=== PATIENT | male | born 1935 | race Caucasian/White ===

== ENCOUNTER 2019-04-25 05:46 | Inpatient (IN) ==
[2019-04-12 14:30] LABS: Basophils % 0.4 % (0.0-0.8); Eosinophils # 0.1 10*3/uL (0.0-0.87); Eosinophils % 1.2 % (0.00-10.9); Hematocrit 33.4 VOL% (42.0-52.0); Immature Granulocytes % 0.5 %; Immature Granulocytes Absolute 0.04 #; Lymphocytes # 1.5 10*3/uL (1.4-4.0); Lymphocytes % 19.5 % (21.2-54.2); Mean Corpuscular HGB Conc 32.9 GM/DL (32-36); Mean Corpuscular Volume 95.4 FL (87-102); Mean Platelet Volume 9.6 FL (9.6-12.0); Monocytes % 8.5 % (1.7-12.7); Neutrophils % 69.9 % (38.7-73.9); Platelet Count 135 T/CUMM (130-400); Red Cell Distribution Width 14.1 % (9.3-17.3); White Blood Count 7.7 T/CUMM (4-12)
[2019-04-12 14:43] LABS: Apearance,Urine CLEAR (Clear); Bilirubin,Urine Negative (Negative); Blood, Urine Small mg/dL (Negative); Glucose,Urine (UA) Negative (Negative); Hyaline Casts,Urine 3 /LPF (0-3); Ketones,Urine Negative (Negative); Mucus,Urine Occasional /LPF (Occasional); Nitrite,Urine Negative (Negative); Protein,Urine Negative; RBC,Urine 5 /HPF (0-4); Squamous Epithelial Cell,Urine Occasional /HPF (0-10); Urine Color Yellow (Yellow); Urine Specific Gravity 1.013 (1.001-1.035); Urine Urobilinogen < 2.0 EU/DL (0.2-1.0); WBC,Urine <1 /HPF (0-6)
[2019-04-12 14:49] LABS: Osmolality,Calculated 270.4 MOS/KG (273-304)
[2019-04-25] MEDS ORDERED: cefTRIAXone 1,000 MG in SYRINGE 1 EACH IV ONE (06:00)
[2019-04-25] MEDS ORDERED: ALVIMOPAN 12 MG CAPSULE PO ONE (06:00)
[2019-04-25] MEDS ORDERED: SODIUM PHOSPHATE ENEMA 133 ML BOTTLE RECTAL ONE ×2 (06:00→06:02)
[2019-04-25] MEDS ORDERED: ALVIMOPAN 12 MG CAPSULE ONE (06:01)
[2019-04-25] MEDS ORDERED: cefTRIAXone 1,000 MG VIAL ONE (06:02)
[2019-04-25] MEDS ORDERED: FAMOTIDINE 20 MG TABLET ONE (06:46)
[2019-04-25] MEDS ORDERED: FAMOTIDINE 20 MG TABLET PO ONE (06:47)
[2019-04-25] MEDS: LACTATED RINGERS 1,000 ML IV SCH ×2 (06:55→11:58)
[2019-04-25] MEDS ORDERED: ONDANSETRON 4 MG/2 ML VIAL IV PRN ×2 (10:21→11:42)
[2019-04-25] MEDS ORDERED: NALOXONE 0.4 MG/ML VIAL IV PRN (10:21)
[2019-04-25] MEDS ORDERED: diphenhydrAMINE 50 MG/1 ML VIAL IV PRN (10:21)
[2019-04-25] MEDS ORDERED: propofoL 200 MG/20 ML VIAL IV ONE (10:49)
[2019-04-25] MEDS ORDERED: LIDOCAINE 2% 5 ML VIAL ONE (10:49)
[2019-04-25] MEDS ORDERED: PHENYLEPHRINE DRIP 20 MG/250 ML PREMIX IV ONE (10:49)
[2019-04-25] MEDS ORDERED: SEVOFLURANE 1 UNIT/15 MINUTE INH ONE (10:49)
[2019-04-25] MEDS ORDERED: ETOMIDATE 40 MG/20 ML VIAL IV ONE (10:50)
[2019-04-25] MEDS ORDERED: GLYCOPYRROLATE 0.4 MG/2 ML VIAL ONE (10:50)
[2019-04-25] MEDS ORDERED: ACETAMINOPHEN 1,000 MG/100 ML VIAL IV ONE (10:50)
[2019-04-25] MEDS ORDERED: fentaNYL 250 MCG/5 ML VIAL ONE (10:50)
[2019-04-25] MEDS ORDERED: DESFLURANE 1 UNIT/15 MINUTE INH ONE (10:50)
[2019-04-25] MEDS ORDERED: DEXAMETHASONE 4 MG/1 ML VIAL ONE (10:50)
[2019-04-25] MEDS ORDERED: NEOSTIGMINE 10 MG/10 ML VIAL ONE (10:51)
[2019-04-25] MEDS ORDERED: ROCURONIUM 100 MG/10 ML VIAL IV ONE (10:51)
[2019-04-25] MEDS: HYDROmorphone 2 MG/1 ML VIAL IV PRN ×3 (11:45→12:10)
[2019-04-25] MEDS ORDERED: HYDROmorphone PCA 30 MG/30 ML SYRINGE IV SCH (12:00)
[2019-04-25] MEDS ORDERED: HYDROmorphone PCA 30 MG/30 ML SYRINGE IV ONE (14:32)
[2019-04-25] MEDS: SODIUM CHLORIDE 0.9% 1,000 ML IV SCH (15:16)
[2019-04-25] MEDS: VERAPAMIL SR 240 MG TABLET PO SCH (20:19)
[2019-04-25] MEDS: MONTELUKAST 10 MG TABLET PO SCH (20:19)
[2019-04-26] MEDS: SODIUM CHLORIDE 0.9% 1,000 ML IV SCH ×2 (03:58)
[2019-04-26 05:49] LABS: Basophils % 0.2 % (0.0-0.8); Hematocrit 29.8 VOL% (42.0-52.0); Hemoglobin 9.6 GM/DL (14.0-18.0); Immature Granulocytes % 0.6 %; Immature Granulocytes Absolute 0.07 #; Lymphocytes % 8.1 % (21.2-54.2); Mean Corpuscular HGB Conc 32.2 GM/DL (32-36); Mean Corpuscular Volume 97.4 FL (87-102); Mean Platelet Volume 9.8 FL (9.6-12.0); Monocytes % 11.7 % (1.7-12.7); Neutrophils % 79.4 % (38.7-73.9); Platelet Count 152 T/CUMM (130-400); Red Blood Count 3.06 MC/CUMM (3.8-5.5); Red Cell Distribution Width 14.5 % (9.3-17.3); White Blood Count 11.8 T/CUMM (4-12)
[2019-04-26 06:05] LABS: Calcium 8.4 MG/DL (8.5-10.1)
[2019-04-26] MEDS: ASPIRIN EC 81 MG TABLET PO SCH (08:35)
[2019-04-26] MEDS ORDERED: CHLORTHALIDONE 25 MG TABLET PO SCH (09:00)
[2019-04-26] MEDS ORDERED: TERAZOSIN 5 MG CAPSULE PO SCH (09:00)
[2019-04-26] MEDS ORDERED: TELMISARTAN 40 MG TABLET PO SCH (09:00)
[2019-04-26] MEDS ORDERED: LOSARTAN 50 MG TABLET PO SCH (09:00)
[2019-04-26] MEDS ORDERED: PANTOPRAZOLE 40 MG TABLET PO SCH (09:00)
[2019-04-26] MEDS: TELMISARTAN 80MG PO SCH (09:20)
[2019-04-26] MEDS: LACTATED RINGERS 1,000 ML IV SCH (12:52)
[2019-04-26] MEDS: oxyCODONE/ACETAMINOPHEN 5-325 MG TABLET PO PRN ×2 (12:55→18:26)
[2019-04-26] MEDS ORDERED: BISACODYL 10 MG SUPP RECTAL ONE (13:41)
[2019-04-26] MEDS ORDERED: POLYETHYLENE GLYCOL POWDER 17 GM PACK PO PRN (16:23)
[2019-04-26] MEDS: SIMETHICONE CHEW 80 MG TABLET PO PRN (16:35)
[2019-04-26] MEDS: VERAPAMIL SR 240 MG TABLET PO SCH (21:06)
[2019-04-26] MEDS: MONTELUKAST 10 MG TABLET PO SCH (21:06)
[2019-04-27] MEDS: oxyCODONE/ACETAMINOPHEN 5-325 MG TABLET PO PRN ×4 (01:35→18:05)
[2019-04-27] MEDS: SIMETHICONE CHEW 80 MG TABLET PO PRN (04:59)
[2019-04-27] MEDS: PANTOPRAZOLE 40 MG TABLET PO SCH (06:00)
[2019-04-27] MEDS ORDERED: BISACODYL 5 MG TABLET PO ONE (08:51)
[2019-04-27] MEDS: CHLORTHALIDONE 25 MG TABLET PO SCH (09:16)
[2019-04-27] MEDS: ASPIRIN EC 81 MG TABLET PO SCH (09:16)
[2019-04-27] MEDS: TELMISARTAN 80MG PO SCH (09:17)
[2019-04-27] MEDS ORDERED: DILTIAZEM CD 240 MG CAPSULE PO SCH (21:00)
[2019-04-27] MEDS ORDERED: TERAZOSIN 5 MG CAPSULE PO SCH (21:00)
[2019-04-27] MEDS: MONTELUKAST 10 MG TABLET PO SCH (21:08)
[2019-04-28] MEDS: oxyCODONE/ACETAMINOPHEN 5-325 MG TABLET PO PRN (02:47)
[2019-04-28] MEDS: PANTOPRAZOLE 40 MG TABLET PO SCH (06:07)
[2019-04-28 08:12] VITALS: BP 129/52
[2019-04-28] MEDS: CHLORTHALIDONE 25 MG TABLET PO SCH (08:17)
[2019-04-28] MEDS: ASPIRIN EC 81 MG TABLET PO SCH (08:17)
[2019-04-28] MEDS ORDERED: TELMISARTAN 80MG PO SCH (09:00)
== END 2019-04-28 10:32 | disposition home health service (06) | DRG 657 ==
LOC: N.OR 05:46 → N.SDSINP 05:46 → N.5E 15:02
PROVIDERS: ADMIT Urology; ATTEND Urology

== ENCOUNTER 2019-05-15 14:46 | Inpatient (IN) ==
[2019-05-15] MEDS ORDERED: cefTRIAXone 1,000 MG in SODIUM CHLORIDE 0.9% 100 ML IV STA (15:18)
[2019-05-15 15:22] LABS: Basophils # 0.1 10*3/uL (0.0-0.2); Basophils % 0.7 % (0.0-0.8); Eosinophils # 0.3 10*3/uL (0.0-0.87); Eosinophils % 3.6 % (0.00-10.9); Hematocrit 29.4 VOL% (42.0-52.0); Hemoglobin 9.6 GM/DL (14.0-18.0); Immature Granulocytes % 0.4 %; Immature Granulocytes Absolute 0.03 #; Lymphocytes # 1.1 10*3/uL (1.4-4.0); Lymphocytes % 14.7 % (21.2-54.2); Mean Corpuscular HGB Conc 32.7 GM/DL (32-36); Mean Corpuscular Volume 96.7 FL (87-102); Mean Platelet Volume 9.6 FL (9.6-12.0); Monocytes % 10.1 % (1.7-12.7); Neutrophils % 70.5 % (38.7-73.9); Platelet Count 219 T/CUMM (130-400); Red Blood Count 3.04 MC/CUMM (3.8-5.5); Red Cell Distribution Width 14.6 % (9.3-17.3); White Blood Count 7.2 T/CUMM (4-12)
[2019-05-15 15:31] LABS: PT Patient Result 11.1 SECS (9.6-12.2); Partial Thromboplastin Time 28.5 SECS (20.8-36.0)
[2019-05-15 15:57] LABS: Albumin 3.2 G/DL (3.4-5.0); Bilirubin,Total 0.5 MG/DL (0.2-1.0); Calcium 8.4 MG/DL (8.5-10.1); Osmolality,Calculated 279.2 MOS/KG (273-304); Total Protein 6.5 G/DL (6.4-8.3)
[2019-05-15] MEDS ORDERED: ONDANSETRON 4 MG/2 ML VIAL IV PRN ×2 (16:58→17:15)
[2019-05-15] MEDS ORDERED: MEPERIDINE 50 MG/1 ML VIAL IM PRN (17:01)
[2019-05-15] MEDS ORDERED: SILDENAFIL 100 MG PO PRN (17:03)
[2019-05-15] MEDS ORDERED: MEPERIDINE 25 MG/1 ML VIAL ONE ×2 (17:14→17:35)
[2019-05-15] MEDS ORDERED: ONDANSETRON 4 MG/2 ML VIAL ONE ×2 (17:14→17:17)
[2019-05-15] MEDS ORDERED: LIDOCAINE 2% 5 ML VIAL ONE (17:15)
[2019-05-15] MEDS ORDERED: propofoL 200 MG/20 ML VIAL IV ONE (17:15)
[2019-05-15] MEDS ORDERED: SEVOFLURANE 1 UNIT/15 MINUTE INH ONE (17:15)
[2019-05-15] MEDS ORDERED: ePHEDrine 50 MG/ML AMP ONE ×2 (17:16)
[2019-05-15] MEDS ORDERED: fentaNYL 100 MCG/2 ML VIAL ONE (17:16)
[2019-05-15] MEDS ORDERED: PHENYLEPHRINE 1 MG/10 ML SYRINGE IV ONE (17:17)
[2019-05-15] MEDS ORDERED: GLYCOPYRROLATE 0.4 MG/2 ML VIAL ONE (17:17)
[2019-05-15] MEDS ORDERED: SUCCINYLCHOLINE 200 MG/10 ML VIAL ONE (17:17)
[2019-05-15] MEDS ORDERED: DEXAMETHASONE 4 MG/1 ML VIAL ONE (17:17)
[2019-05-15] MEDS: MEPERIDINE 25 MG/1 ML VIAL IV PRN ×2 (17:18→17:36)
[2019-05-15] MEDS ORDERED: NEOSTIGMINE 10 MG/10 ML VIAL ONE (17:18)
[2019-05-15] MEDS ORDERED: ROCURONIUM 100 MG/10 ML VIAL IV ONE (17:18)
[2019-05-15] MEDS ORDERED: LACTATED RINGERS 1,000 ML IV ONE (17:18)
[2019-05-15] MEDS: DEXTROSE 5% NACL 0.45% 1,000 ML IV SCH (18:13)
[2019-05-15] MEDS: traMADol 50 MG TABLET PO PRN (19:40)
[2019-05-15] MEDS ORDERED: VERAPAMIL SR 240 MG TABLET PO SCH (21:00)
[2019-05-15] MEDS ORDERED: MONTELUKAST 10 MG TABLET PO SCH (21:00)
[2019-05-16] MEDS: traMADol 50 MG TABLET PO PRN ×2 (02:31→08:32)
[2019-05-16 05:40] LABS: Basophils % 0.1 % (0.0-0.8); Hematocrit 27.7 VOL% (42.0-52.0); Hemoglobin 9.1 GM/DL (14.0-18.0); Immature Granulocytes % 0.5 %; Immature Granulocytes Absolute 0.04 #; Lymphocytes # 0.4 10*3/uL (1.4-4.0); Lymphocytes % 4.6 % (21.2-54.2); Mean Corpuscular HGB Conc 32.9 GM/DL (32-36); Mean Corpuscular Volume 96.2 FL (87-102); Mean Platelet Volume 9.3 FL (9.6-12.0); Neutrophils % 90.8 % (38.7-73.9); Platelet Count 200 T/CUMM (130-400); Red Blood Count 2.88 MC/CUMM (3.8-5.5); Red Cell Distribution Width 14.5 % (9.3-17.3); White Blood Count 7.6 T/CUMM (4-12)
[2019-05-16 06:02] LABS: Band Neutrophils 1 % (0-10); Hypochromasia 1+; Lymphocytes 2 % (20-55); Ovalocytes Slight; Platelet Estimate Adequate; Segmented Neutrophils 93 % (50-85); Total Cells Counted 100
[2019-05-16 06:12] LABS: Calcium 8.6 MG/DL (8.5-10.1); Osmolality,Calculated 272.7 MOS/KG (273-304)
[2019-05-16] MEDS: DEXTROSE 5% NACL 0.45% 1,000 ML IV SCH (06:47)
[2019-05-16] MEDS ORDERED: TERAZOSIN 5 MG CAPSULE PO SCH (09:00)
[2019-05-16] MEDS ORDERED: CHLORTHALIDONE 25 MG TABLET PO SCH (09:00)
[2019-05-16] MEDS ORDERED: MELOXICAM 7.5 MG TABLET PO SCH (09:00)
[2019-05-16] MEDS ORDERED: PANTOPRAZOLE 40 MG TABLET PO SCH (09:00)
[2019-05-16 09:09] VITALS: BP 129/51
== END 2019-05-16 09:59 | disposition home or self-care (01) | DRG 909 ==
LOC: N.ED 14:46 → N.EDINP 14:46 → INTOOBSV 15:27 → OBSVTOIN 15:27 → N.EDINP 15:27 → N.5E 15:46 → UNDODISOB 05-16 09:59
PROVIDERS: ADMIT Urology; ATTEND Urology

== ENCOUNTER 2019-06-12 13:08 | Inpatient (IN) ==
[2019-06-12 13:39] LABS: Basophils % 0.3 % (0.0-0.8); Eosinophils # 0.1 10*3/uL (0.0-0.87); Eosinophils % 0.7 % (0.00-10.9); Hematocrit 29.4 VOL% (42.0-52.0); Hemoglobin 9.2 GM/DL (14.0-18.0); Immature Granulocytes % 0.5 %; Immature Granulocytes Absolute 0.04 #; Lymphocytes # 0.8 10*3/uL (1.4-4.0); Mean Corpuscular HGB Conc 31.3 GM/DL (32-36); Mean Platelet Volume 9.4 FL (9.6-12.0); Monocytes % 10.2 % (1.7-12.7); Neutrophils % 79.3 % (38.7-73.9); Platelet Count 200 T/CUMM (130-400); Red Blood Count 2.94 MC/CUMM (3.8-5.5); Red Cell Distribution Width 14.1 % (9.3-17.3); White Blood Count 8.8 T/CUMM (4-12)
[2019-06-12 14:00] LABS: Albumin 3.6 G/DL (3.4-5.0); Bilirubin,Total 0.5 MG/DL (0.2-1.0); Calcium 9.1 MG/DL (8.5-10.1); Osmolality,Calculated 270.5 MOS/KG (273-304); Total Protein 6.4 G/DL (6.4-8.3)
[2019-06-12] MEDS ORDERED: FUROSEMIDE 100 MG/10 ML VIAL IV STA (14:41)
[2019-06-12] MEDS ORDERED: ONDANSETRON 4 MG/2 ML VIAL IV STA (14:41)
[2019-06-12] MEDS ORDERED: ALBUTEROL/IPRATROPIUM 3 ML NEB RESP TX STA (14:41)
[2019-06-12] MEDS ORDERED: ONDANSETRON 4 MG/2 ML VIAL IV PRN (16:09)
[2019-06-12] MEDS ORDERED: ACETAMINOPHEN 325 MG TABLET PO PRN (16:09)
[2019-06-12] MEDS: ALBUTEROL/IPRATROPIUM 3 ML NEB RESP TX SCH (18:40)
[2019-06-12] MEDS: MONTELUKAST 10 MG TABLET PO SCH (21:12)
[2019-06-12] MEDS: APIXABAN 2.5 MG TABLET PO SCH (21:12)
[2019-06-12] MEDS: TERAZOSIN 10 MG CAPSULE PO SCH (21:12)
[2019-06-12] MEDS: VERAPAMIL SR 240 MG TABLET PO SCH (21:12)
[2019-06-12 22:03] LABS: Apearance,Urine CLEAR (Clear); Bilirubin,Urine Negative (Negative); Blood, Urine Negative (Negative); Glucose,Urine (UA) Negative (Negative); Ketones,Urine Negative (Negative); Nitrite,Urine Negative (Negative); Protein,Urine Negative; RBC,Urine 1 /HPF (0-4); Urine Color Colorless (Yellow); Urine Specific Gravity 1.005 (1.001-1.035); Urine Urobilinogen < 2.0 EU/DL (0.2-1.0); WBC,Urine <1 /HPF (0-6)
[2019-06-13] MEDS: ALBUTEROL/IPRATROPIUM 3 ML NEB RESP TX SCH ×4 (01:12→19:10)
[2019-06-13 04:29] LABS: Basophils % 0.4 % (0.0-0.8); Eosinophils # 0.2 10*3/uL (0.0-0.87); Eosinophils % 3.1 % (0.00-10.9); Hematocrit 27.2 VOL% (42.0-52.0); Hemoglobin 8.7 GM/DL (14.0-18.0); Immature Granulocytes % 0.3 %; Immature Granulocytes Absolute 0.02 #; Lymphocytes # 1.7 10*3/uL (1.4-4.0); Lymphocytes % 23.6 % (21.2-54.2); Mean Corpuscular Volume 98.6 FL (87-102); Mean Platelet Volume 9.6 FL (9.6-12.0); Neutrophils % 61.6 % (38.7-73.9); Platelet Count 213 T/CUMM (130-400); Red Blood Count 2.76 MC/CUMM (3.8-5.5); Red Cell Distribution Width 14.3 % (9.3-17.3); White Blood Count 7.1 T/CUMM (4-12)
[2019-06-13 04:59] LABS: Calcium 9.2 MG/DL (8.5-10.1); Osmolality,Calculated 273.4 MOS/KG (273-304)
[2019-06-13 05:00] LABS: Risk Ratio 1.61; VLDL CHOLESTEROL 11.2 MG/DL
[2019-06-13] MEDS: PANTOPRAZOLE 40 MG TABLET PO SCH (10:35)
[2019-06-13] MEDS: LINACLOTIDE 145 MCG CAPSULE PO SCH (10:35)
[2019-06-13] MEDS: ASPIRIN EC 81 MG TABLET PO SCH (10:35)
[2019-06-13] MEDS: APIXABAN 2.5 MG TABLET PO SCH ×2 (10:36→21:09)
[2019-06-13] MEDS: DOCUSATE SODIUM 100 MG CAPSULE PO PRN (10:36)
[2019-06-13] MEDS: FUROSEMIDE 40 MG/4 ML VIAL IV SCH ×2 (10:36→18:02)
[2019-06-13] MEDS ORDERED: PRAMIPEXOLE 0.25 MG TABLET PO SCH (21:00)
[2019-06-13] MEDS: VERAPAMIL SR 240 MG TABLET PO SCH (21:09)
[2019-06-13] MEDS: TERAZOSIN 10 MG CAPSULE PO SCH (21:09)
[2019-06-13] MEDS: VITAMIN E 400 UNIT CAPSULE PO SCH (21:09)
[2019-06-13] MEDS: MONTELUKAST 10 MG TABLET PO SCH (21:09)
[2019-06-14] MEDS: ALBUTEROL/IPRATROPIUM 3 ML NEB RESP TX SCH ×3 (01:42→13:27)
[2019-06-14 04:40] LABS: Basophils % 0.5 % (0.0-0.8); Eosinophils # 0.3 10*3/uL (0.0-0.87); Eosinophils % 4.4 % (0.00-10.9); Hemoglobin 8.3 GM/DL (14.0-18.0); Immature Granulocytes % 0.5 %; Immature Granulocytes Absolute 0.03 #; Lymphocytes # 1.3 10*3/uL (1.4-4.0); Lymphocytes % 21.7 % (21.2-54.2); Mean Corpuscular HGB Conc 30.7 GM/DL (32-36); Mean Corpuscular Volume 101.1 FL (87-102); Mean Platelet Volume 9.9 FL (9.6-12.0); Monocytes % 13.1 % (1.7-12.7); Neutrophils % 59.8 % (38.7-73.9); Platelet Count 186 T/CUMM (130-400); Red Blood Count 2.67 MC/CUMM (3.8-5.5); Red Cell Distribution Width 14.2 % (9.3-17.3); White Blood Count 6.1 T/CUMM (4-12)
[2019-06-14] MEDS ORDERED: FUROSEMIDE 20 MG/2 ML VIAL IV SCH (07:36)
[2019-06-14] MEDS: LINACLOTIDE 145 MCG CAPSULE PO SCH (08:10)
[2019-06-14] MEDS: VITAMIN E 400 UNIT CAPSULE PO SCH (08:43)
[2019-06-14] MEDS: PANTOPRAZOLE 40 MG TABLET PO SCH (08:43)
[2019-06-14] MEDS: DOCUSATE SODIUM 100 MG CAPSULE PO PRN (08:43)
[2019-06-14] MEDS: APIXABAN 2.5 MG TABLET PO SCH (08:43)
[2019-06-14] MEDS: ASPIRIN EC 81 MG TABLET PO SCH (08:43)
[2019-06-14] MEDS ORDERED: BISACODYL 5 MG TABLET PO ONE (09:30)
[2019-06-14 12:20] VITALS: BP 114/41
[2019-06-14] MEDS ORDERED: FUROSEMIDE 40 MG TABLET PO SCH (16:00)
[2019-06-14] MEDS ORDERED: hydrALAZINE 25 MG TABLET PO SCH (21:00)
== END 2019-06-14 15:35 | disposition home or self-care (01) | DRG 291 ==
LOC: N.ED 13:08 → N.EDINP 15:24 → N.TELES 15:39
PROVIDERS: ADMIT Internal Medicine; ATTEND Internal Medicine

== ENCOUNTER 2019-07-19 15:58 | Inpatient (IN) ==
[2019-07-19] MEDS ORDERED: DOPamine 800 MG/250 ML PREMIX IV ONE (22:41)
[2019-07-19] MEDS ORDERED: SODIUM CHLORIDE 0.9% 500 ML IV ONE (22:43)
[2019-07-19 22:50] LABS: Hematocrit 28.5 VOL% (42.0-52.0); Hemoglobin 8.4 GM/DL (14.0-18.0); Immature Granulocytes % 1.1 %; Immature Granulocytes Absolute 0.22 #; Lymphocytes # 0.8 10*3/uL (1.4-4.0); Lymphocytes % 3.8 % (21.2-54.2); Mean Corpuscular HGB Conc 29.5 GM/DL (32-36); Mean Platelet Volume 11.5 FL (9.6-12.0); Monocytes % 10.8 % (1.7-12.7); NRBC # 0.02 10*3/uL; Neutrophils % 84.3 % (38.7-73.9); Platelet Count 139 T/CUMM (130-400); Red Blood Count 2.88 MC/CUMM (3.8-5.5); Red Cell Distribution Width 14.1 % (9.3-17.3); White Blood Count 20.6 T/CUMM (4-12)
[2019-07-19] MEDS ORDERED: DEXTROSE 10% 250 ML IV ONE (22:51)
[2019-07-19] MEDS ORDERED: SODIUM BICARBONATE 50 MEQ/50 ML VIAL IV ONE (22:51)
[2019-07-19] MEDS ORDERED: INSULIN REGULAR 100 UNIT/ML ONE (22:53)
[2019-07-19] MEDS ORDERED: CALCIUM GLUCONATE 1,000 MG/10 ML VIAL IV ONE (22:54)
[2019-07-19] MEDS ORDERED: SODIUM CHLORIDE 0.9% 100 ML IV ONE (22:54)
[2019-07-19] MEDS ORDERED: MORPHINE 4 MG/1 ML VIAL ONE (23:04)
[2019-07-19] MEDS ORDERED: ONDANSETRON 4 MG/2 ML VIAL ONE (23:05)
[2019-07-19] MEDS: ONDANSETRON 4 MG/2 ML VIAL IV PRN (23:08)
[2019-07-19 23:11] LABS: CKMB % 2.7 %; Troponin I 0.389 NG/ML (0.00-0.045)
[2019-07-19 23:21] LABS: Albumin 3.4 G/DL (3.4-5.0); Bilirubin,Total 2.1 MG/DL (0.2-1.0); Calcium 9.1 MG/DL (8.5-10.1); Osmolality,Calculated 285.2 MOS/KG (273-304); Total Protein 5.8 G/DL (6.4-8.3)
[2019-07-19 23:36] LABS: INR 4.5
[2019-07-19] MEDS ORDERED: DOCUSATE SODIUM 100 MG CAPSULE PO PRN (23:47)
[2019-07-19] MEDS ORDERED: ALBUTEROL 2.5 MG/3 ML NEB RESP TX PRN (23:47)
[2019-07-19 23:48] LABS: PT Patient Result 44.8 SECS (9.8-11.9)
[2019-07-20] MEDS ORDERED: VANCOMYCIN INJ 2,250 MG in SODIUM CHLORIDE 0.9% 500 ML IV ONE
[2019-07-20] MEDS ORDERED: DOPamine 800 MG/250 ML PREMIX IV PRN (00:17)
[2019-07-20] MEDS ORDERED: SODIUM BICARBONATE 50 MEQ/50 ML VIAL IV ONE (00:20)
[2019-07-20] MEDS ORDERED: CALCIUM GLUCONATE 1,000 MG in SODIUM CHLORIDE 0.9% 100 ML IV ONE (00:21)
[2019-07-20] MEDS ORDERED: DEXTROSE 50% 25 GM/50 ML SYRINGE IV ONE (00:22)
[2019-07-20] MEDS ORDERED: INSULIN REGULAR 100 UNIT/ML IV ONE (00:22)
[2019-07-20 00:23] LABS: Lymphocytes 4 % (20-55); Platelet Estimate Decreased; Segmented Neutrophils 86 % (50-85); Total Cells Counted 100
[2019-07-20 00:24] LABS: Acanthocytes 2+; Anisocytosis 2+; Hypochromasia 1+; Macrocytosis 1+; Microcytosis 1+; Ovalocytes 2+; Target Cells Few
[2019-07-20] MEDS: MORPHINE 4 MG/1 ML VIAL IV PRN (00:25)
[2019-07-20 00:30] LABS: Allen Test Positive
[2019-07-20 00:33] LABS: ABG Base Excess -8.5 MMOL/L (-2.5-2.5); ABG HCO3 17.5 MMOL/L (20-26); ABG Oxygen Saturation 98.8 % (95-100); ABG PCO2 34.1 MM HG (35-48); ABG PH 7.307 (7.35-7.45)
[2019-07-20] MEDS ORDERED: LIDOCAINE 2% TOP JELLY 20 ML VIAL INTRAURETH ONE (00:50)
[2019-07-20] MEDS ORDERED: LIDOCAINE 2% 20 ML VIAL ONE (00:50)
[2019-07-20] MEDS: PIPERACILLIN/TAZOBACTAM 3,375 MG in SODIUM CHLORIDE 0.9% 100 ML IV SCH ×3 (02:03→23:49)
[2019-07-20 02:56] LABS: Ferritin 71.3 ng/ml (26-388)
[2019-07-20 03:13] LABS: Apearance,Urine Slightly Hazy (Clear); Bacteria,Urine Occasional /HPF (Few); Bilirubin,Urine Negative (Negative); Blood, Urine Negative (Negative); Glucose,Urine (UA) Negative (Negative); Ketones,Urine Negative (Negative); Mucus,Urine Occasional /LPF (Occasional); Nitrite,Urine Negative (Negative); Protein,Urine 30 MG/DL; Squamous Epithelial Cell,Urine Occasional /HPF (0-10); Urine Color Amber (Yellow); Urine Specific Gravity 1.015 (1.001-1.035)
[2019-07-20] MEDS: SODIUM BICARB INJ 50 MEQ in SODIUM CHLORIDE 0.45% 1,000 ML IV SCH ×2 (03:50→17:12)
[2019-07-20] MEDS ORDERED: VANCOMYCIN INJ 1,500 MG in SODIUM CHLORIDE 0.9% 500 ML IV PRN (04:07)
[2019-07-20 05:04] LABS: Basophils % 0.1 % (0.0-0.8); Hematocrit 23.8 VOL% (42.0-52.0); Immature Granulocytes Absolute 0.16 #; Lymphocytes # 0.5 10*3/uL (1.4-4.0); Lymphocytes % 2.9 % (21.2-54.2); Mean Corpuscular HGB Conc 31.5 GM/DL (32-36); Mean Corpuscular Volume 91.9 FL (87-102); Mean Platelet Volume 11.4 FL (9.6-12.0); Monocytes % 10.5 % (1.7-12.7); NRBC # 0.02 10*3/uL; Neutrophils % 85.5 % (38.7-73.9); Red Blood Count 2.59 MC/CUMM (3.8-5.5); White Blood Count 15.4 T/CUMM (4-12)
[2019-07-20 05:06] LABS: Hemoglobin 7.5 GM/DL (14.0-18.0); Platelet Count 83 T/CUMM (130-400)
[2019-07-20 05:44] LABS: Band Neutrophils 4 % (0-10); Lymphocytes 2 % (20-55); Platelet Estimate Decreased; Segmented Neutrophils 84 % (50-85); Total Cells Counted 100
[2019-07-20 05:45] LABS: Anisocytosis 1+; Hypochromasia 2+; Macrocytosis 1+; Target Cells 2+
[2019-07-20 08:05] LABS: Bilirubin,Total 2.2 MG/DL (0.2-1.0); Calcium 9.2 MG/DL (8.5-10.1); Osmolality,Calculated 284.4 MOS/KG (273-304); Total Protein 5.6 G/DL (6.4-8.3)
[2019-07-20] MEDS ORDERED: BENZOCAINE/MENTHOL LOZENGE 18/BOX PO PRN (08:12)
[2019-07-20] MEDS: DOBUTamine 500 MG/250 ML PREMIX IV SCH (08:24)
[2019-07-20] MEDS: FUROSEMIDE 40 MG TABLET PO SCH ×2 (08:27→15:33)
[2019-07-20] MEDS: ASPIRIN EC 81 MG TABLET PO SCH (08:27)
[2019-07-20] MEDS: POTASSIUM CHLORIDE 10 MEQ TABLET PO SCH (08:27)
[2019-07-20] MEDS: VITAMIN E 1000 UNIT CAPSULE PO SCH ×2 (08:28→20:32)
[2019-07-20] MEDS ORDERED: BISACODYL 5 MG TABLET PO SCH (09:00)
[2019-07-20] MEDS ORDERED: LINACLOTIDE 145 MCG CAPSULE PO SCH (09:00)
[2019-07-20] MEDS ORDERED: PANTOPRAZOLE 40 MG TABLET PO SCH (09:00)
[2019-07-20] MEDS ORDERED: APIXABAN 2.5 MG TABLET PO SCH (09:00)
[2019-07-20] MEDS: POLYETHYLENE GLYCOL POWDER 17 GM PACK PO SCH ×2 (15:33→20:40)
[2019-07-20] MEDS: MONTELUKAST 10 MG TABLET PO SCH (20:32)
[2019-07-20] MEDS: PANTOPRAZOLE 40 MG VIAL IV SCH (20:34)
[2019-07-20] MEDS: TERAZOSIN 10 MG CAPSULE PO SCH (20:40)
[2019-07-21] MEDS: MORPHINE 4 MG/1 ML VIAL IV PRN ×2 (01:12→20:19)
[2019-07-21] MEDS: DOBUTamine 500 MG/250 ML PREMIX IV SCH ×2 (03:13→19:15)
[2019-07-21 04:01] LABS: Basophils % 0.1 % (0.0-0.8); Eosinophils # 0.1 10*3/uL (0.0-0.87); Eosinophils % 0.4 % (0.00-10.9); Hemoglobin 7.7 GM/DL (14.0-18.0); Immature Granulocytes % 0.5 %; Immature Granulocytes Absolute 0.06 #; Lymphocytes # 0.8 10*3/uL (1.4-4.0); Lymphocytes % 6.4 % (21.2-54.2); Mean Corpuscular HGB Conc 30.8 GM/DL (32-36); Mean Platelet Volume 11.2 FL (9.6-12.0); Monocytes % 8.7 % (1.7-12.7); NRBC # 0.05 10*3/uL; Neutrophils % 83.9 % (38.7-73.9); Platelet Count 57 T/CUMM (130-400); Red Blood Count 2.66 MC/CUMM (3.8-5.5); Red Cell Distribution Width 14.5 % (9.3-17.3); White Blood Count 12.6 T/CUMM (4-12)
[2019-07-21 04:40] LABS: Albumin 2.9 G/DL (3.4-5.0); Bilirubin,Total 1.8 MG/DL (0.2-1.0); Calcium 8.4 MG/DL (8.5-10.1); Osmolality,Calculated 282.6 MOS/KG (273-304); Total Protein 5.2 G/DL (6.4-8.3)
[2019-07-21 04:51] LABS: Anisocytosis 1+; Ovalocytes 1+; Platelet Estimate Decreased
[2019-07-21] MEDS: SODIUM BICARB INJ 50 MEQ in SODIUM CHLORIDE 0.45% 1,000 ML IV SCH (06:41)
[2019-07-21] MEDS: FUROSEMIDE 40 MG TABLET PO SCH ×2 (08:00→16:00)
[2019-07-21] MEDS: LINACLOTIDE 145 MCG CAPSULE PO SCH (08:00)
[2019-07-21] MEDS: ASPIRIN EC 81 MG TABLET PO SCH (08:01)
[2019-07-21] MEDS: POTASSIUM CHLORIDE 10 MEQ TABLET PO SCH (08:15)
[2019-07-21] MEDS: POLYETHYLENE GLYCOL POWDER 17 GM PACK PO SCH ×3 (08:17→20:08)
[2019-07-21] MEDS: VITAMIN E 1000 UNIT CAPSULE PO SCH ×2 (08:20→20:08)
[2019-07-21] MEDS: PANTOPRAZOLE 40 MG VIAL IV SCH ×2 (11:07→20:08)
[2019-07-21] MEDS: PIPERACILLIN/TAZOBACTAM 3,375 MG in SODIUM CHLORIDE 0.9% 100 ML IV SCH ×2 (12:43→22:53)
[2019-07-21] MEDS ORDERED: VANCOMYCIN INJ 1,500 MG in SODIUM CHLORIDE 0.9% 500 ML IV ONE (16:00)
[2019-07-21] MEDS: TERAZOSIN 10 MG CAPSULE PO SCH (20:08)
[2019-07-21] MEDS: MONTELUKAST 10 MG TABLET PO SCH (20:08)
[2019-07-22] MEDS: MORPHINE 4 MG/1 ML VIAL IV PRN (00:33)
[2019-07-22] MEDS: SODIUM BICARB INJ 50 MEQ in SODIUM CHLORIDE 0.45% 1,000 ML IV SCH ×2 (01:58→12:15)
[2019-07-22 04:41] LABS: Basophils % 0.2 % (0.0-0.8); Eosinophils # 0.2 10*3/uL (0.0-0.87); Eosinophils % 2.1 % (0.00-10.9); Hematocrit 26.1 VOL% (42.0-52.0); Hemoglobin 8.4 GM/DL (14.0-18.0); Immature Granulocytes % 0.6 %; Immature Granulocytes Absolute 0.05 #; Lymphocytes # 0.9 10*3/uL (1.4-4.0); Lymphocytes % 9.7 % (21.2-54.2); Mean Corpuscular HGB Conc 32.2 GM/DL (32-36); Mean Corpuscular Volume 91.3 FL (87-102); Mean Platelet Volume 11.8 FL (9.6-12.0); Monocytes % 11.4 % (1.7-12.7); NRBC # 0.03 10*3/uL; Platelet Count 58 T/CUMM (130-400); Red Blood Count 2.86 MC/CUMM (3.8-5.5); Red Cell Distribution Width 14.1 % (9.3-17.3); White Blood Count 8.9 T/CUMM (4-12)
[2019-07-22 05:06] LABS: Bilirubin,Total 2.1 MG/DL (0.2-1.0); Calcium 8.3 MG/DL (8.5-10.1); Osmolality,Calculated 288.2 MOS/KG (273-304); Total Protein 5.3 G/DL (6.4-8.3)
[2019-07-22 06:44] LABS: Lymphocytes 13 % (20-55); Segmented Neutrophils 76 % (50-85); Total Cells Counted 100
[2019-07-22 06:45] LABS: Anisocytosis 1+; Platelet Estimate Decreased
[2019-07-22] MEDS: FUROSEMIDE 40 MG TABLET PO SCH ×2 (08:00→16:12)
[2019-07-22] MEDS: LINACLOTIDE 145 MCG CAPSULE PO SCH (08:00)
[2019-07-22] MEDS: POLYETHYLENE GLYCOL POWDER 17 GM PACK PO SCH ×3 (08:00→21:00)
[2019-07-22] MEDS: VITAMIN E 1000 UNIT CAPSULE PO SCH ×2 (08:00→21:00)
[2019-07-22] MEDS: POTASSIUM CHLORIDE 10 MEQ TABLET PO SCH (08:00)
[2019-07-22] MEDS: ASPIRIN EC 81 MG TABLET PO SCH (08:00)
[2019-07-22] MEDS: PANTOPRAZOLE 40 MG VIAL IV SCH ×2 (10:21→21:00)
[2019-07-22] MEDS: ISOSORBIDE MONONITRATE 30 MG TABLET PO SCH (11:00)
[2019-07-22] MEDS: PIPERACILLIN/TAZOBACTAM 3,375 MG in SODIUM CHLORIDE 0.9% 100 ML IV SCH (14:36)
[2019-07-22] MEDS: MONTELUKAST 10 MG TABLET PO SCH (21:00)
[2019-07-22] MEDS: hydrALAZINE 25 MG TABLET PO SCH (21:00)
[2019-07-23] MEDS: PIPERACILLIN/TAZOBACTAM 3,375 MG in SODIUM CHLORIDE 0.9% 100 ML IV SCH ×3 (00:15→23:53)
[2019-07-23] MEDS: SODIUM BICARB INJ 50 MEQ in SODIUM CHLORIDE 0.45% 1,000 ML IV SCH ×2 (05:12→12:45)
[2019-07-23 05:33] LABS: Basophils % 0.2 % (0.0-0.8); Eosinophils # 0.2 10*3/uL (0.0-0.87); Eosinophils % 2.4 % (0.00-10.9); Hematocrit 27.2 VOL% (42.0-52.0); Hemoglobin 8.6 GM/DL (14.0-18.0); Immature Granulocytes % 0.9 %; Immature Granulocytes Absolute 0.08 #; Mean Corpuscular HGB Conc 31.6 GM/DL (32-36); Mean Corpuscular Volume 91.9 FL (87-102); Mean Platelet Volume 10.8 FL (9.6-12.0); Monocytes % 12.2 % (1.7-12.7); NRBC # 0.02 10*3/uL; Neutrophils % 72.3 % (38.7-73.9); Platelet Count 65 T/CUMM (130-400); Red Blood Count 2.96 MC/CUMM (3.8-5.5); Red Cell Distribution Width 14.1 % (9.3-17.3); White Blood Count 8.6 T/CUMM (4-12)
[2019-07-23 05:37] LABS: PT Patient Result 20.9 SECS (9.8-11.9)
[2019-07-23 06:07] LABS: Calcium 8.3 MG/DL (8.5-10.1); Osmolality,Calculated 289.2 MOS/KG (273-304)
[2019-07-23 06:37] LABS: Albumin 2.8 G/DL (3.4-5.0); Bilirubin,Total 2.7 MG/DL (0.2-1.0); Calcium 8.4 MG/DL (8.5-10.1); Osmolality,Calculated 289.1 MOS/KG (273-304); Total Protein 5.3 G/DL (6.4-8.3)
[2019-07-23] MEDS: PANTOPRAZOLE 40 MG VIAL IV SCH ×2 (08:50→21:47)
[2019-07-23] MEDS: POLYETHYLENE GLYCOL POWDER 17 GM PACK PO SCH ×3 (08:50→21:47)
[2019-07-23] MEDS: ASPIRIN EC 81 MG TABLET PO SCH (08:51)
[2019-07-23] MEDS: POTASSIUM CHLORIDE 10 MEQ TABLET PO SCH (08:51)
[2019-07-23] MEDS: FUROSEMIDE 40 MG TABLET PO SCH ×2 (08:51→15:31)
[2019-07-23] MEDS: hydrALAZINE 25 MG TABLET PO SCH ×2 (08:51→21:47)
[2019-07-23] MEDS: VITAMIN E 1000 UNIT CAPSULE PO SCH ×2 (08:52→21:47)
[2019-07-23] MEDS: LINACLOTIDE 145 MCG CAPSULE PO SCH (08:52)
[2019-07-23] MEDS: ISOSORBIDE MONONITRATE 30 MG TABLET PO SCH (08:52)
[2019-07-23 11:18] LABS: Acanthocytes Few; Burr Cells Few; Hypochromasia 3+; Ovalocytes Few; Poikilocytosis 2+; Polychromasia Slight
[2019-07-23 11:19] LABS: Platelet Estimate Decreased
[2019-07-23] MEDS: MORPHINE 4 MG/1 ML VIAL IV PRN ×2 (17:59→23:53)
[2019-07-23] MEDS: MONTELUKAST 10 MG TABLET PO SCH (21:47)
[2019-07-24 06:30] LABS: Basophils % 0.2 % (0.0-0.8); Eosinophils # 0.2 10*3/uL (0.0-0.87); Eosinophils % 2.5 % (0.00-10.9); Hematocrit 28.4 VOL% (42.0-52.0); Hemoglobin 8.8 GM/DL (14.0-18.0); Immature Granulocytes % 0.6 %; Immature Granulocytes Absolute 0.05 #; Lymphocytes # 1.1 10*3/uL (1.4-4.0); Lymphocytes % 12.7 % (21.2-54.2); Mean Corpuscular Volume 92.2 FL (87-102); Mean Platelet Volume 10.8 FL (9.6-12.0); Monocytes % 14.2 % (1.7-12.7); Neutrophils % 69.8 % (38.7-73.9); Platelet Count 72 T/CUMM (130-400); Red Blood Count 3.08 MC/CUMM (3.8-5.5); Red Cell Distribution Width 14.3 % (9.3-17.3); White Blood Count 8.8 T/CUMM (4-12)
[2019-07-24] MEDS ORDERED: BISACODYL 5 MG TABLET PO ONE (06:52)
[2019-07-24 06:58] LABS: Hypochromasia 1+; Ovalocytes Slight; Platelet Estimate Decreased
[2019-07-24 07:09] LABS: Calcium 8.3 MG/DL (8.5-10.1); Osmolality,Calculated 289.9 MOS/KG (273-304)
[2019-07-24 07:13] LABS: Albumin 2.8 G/DL (3.4-5.0); Bilirubin,Direct 1.4 MG/DL (0.0-0.20); Bilirubin,Total 2.4 MG/DL (0.2-1.0); Total Protein 5.5 G/DL (6.4-8.3)
[2019-07-24] MEDS: ISOSORBIDE MONONITRATE 30 MG TABLET PO SCH (09:01)
[2019-07-24] MEDS: POTASSIUM CHLORIDE 10 MEQ TABLET PO SCH (09:02)
[2019-07-24] MEDS: hydrALAZINE 25 MG TABLET PO SCH ×2 (09:03→21:42)
[2019-07-24] MEDS: ASPIRIN EC 81 MG TABLET PO SCH (09:03)
[2019-07-24] MEDS: PANTOPRAZOLE 40 MG VIAL IV SCH ×2 (09:04→21:43)
[2019-07-24] MEDS: VITAMIN E 1000 UNIT CAPSULE PO SCH ×2 (09:04→21:30)
[2019-07-24] MEDS: POLYETHYLENE GLYCOL POWDER 17 GM PACK PO SCH ×3 (09:04→21:43)
[2019-07-24] MEDS: SENNA 8.6 MG TABLET PO SCH ×2 (09:31→21:30)
[2019-07-24] MEDS: LINACLOTIDE 145 MCG CAPSULE PO SCH (09:31)
[2019-07-24] MEDS: FUROSEMIDE 40 MG TABLET PO SCH ×2 (09:59→15:32)
[2019-07-24 10:19] LABS: Hepatitis B Core IgM Quant 0.06 Index; Hepatitis B Surface Ag Quant 0.21 Index; Hepatitis B Surface Ag Result Negative (Negative); Hepatitis C Virus Ab Quant < 0.02 Index; Hepatitis C Virus Ab Result Negative (Negative)
[2019-07-24] MEDS: SODIUM BICARB INJ 50 MEQ in SODIUM CHLORIDE 0.45% 1,000 ML IV SCH (12:22)
[2019-07-24] MEDS: PIPERACILLIN/TAZOBACTAM 3,375 MG in SODIUM CHLORIDE 0.9% 100 ML IV SCH (12:33)
[2019-07-24] MEDS: ONDANSETRON 4 MG/2 ML VIAL IV PRN (17:26)
[2019-07-24] MEDS: MONTELUKAST 10 MG TABLET PO SCH (21:30)
[2019-07-25] MEDS: PIPERACILLIN/TAZOBACTAM 3,375 MG in SODIUM CHLORIDE 0.9% 100 ML IV SCH ×3 (00:37→23:47)
[2019-07-25] MEDS: LINACLOTIDE 145 MCG CAPSULE PO SCH (08:09)
[2019-07-25] MEDS: FUROSEMIDE 40 MG TABLET PO SCH ×2 (08:10→16:53)
[2019-07-25] MEDS: carvediloL 3.125 MG TABLET PO SCH ×2 (08:10→21:16)
[2019-07-25] MEDS: hydrALAZINE 25 MG TABLET PO SCH ×2 (08:11→21:16)
[2019-07-25] MEDS: POTASSIUM CHLORIDE 10 MEQ TABLET PO SCH (08:12)
[2019-07-25] MEDS: POLYETHYLENE GLYCOL POWDER 17 GM PACK PO SCH ×2 (08:12→23:53)
[2019-07-25] MEDS: SENNA 8.6 MG TABLET PO SCH ×2 (08:12→21:19)
[2019-07-25] MEDS: ISOSORBIDE MONONITRATE 30 MG TABLET PO SCH (08:12)
[2019-07-25] MEDS: ASPIRIN EC 81 MG TABLET PO SCH (08:12)
[2019-07-25] MEDS: PANTOPRAZOLE 40 MG VIAL IV SCH ×2 (08:12→21:16)
[2019-07-25] MEDS: VITAMIN E 1000 UNIT CAPSULE PO SCH ×2 (08:12→21:18)
[2019-07-25] MEDS: MONTELUKAST 10 MG TABLET PO SCH (21:16)
[2019-07-26] MEDS ORDERED: ACETAMINOPHEN 500 MG TABLET PO PRN (00:25)
[2019-07-26 08:56] VITALS: BP 122/64
[2019-07-26 09:23] LABS: Basophils % 0.3 % (0.0-0.8); Eosinophils # 0.3 10*3/uL (0.0-0.87); Eosinophils % 3.3 % (0.00-10.9); Hematocrit 28.3 VOL% (42.0-52.0); Hemoglobin 8.7 GM/DL (14.0-18.0); Immature Granulocytes % 0.5 %; Immature Granulocytes Absolute 0.05 #; Lymphocytes # 1.3 10*3/uL (1.4-4.0); Lymphocytes % 14.6 % (21.2-54.2); Mean Corpuscular HGB Conc 30.7 GM/DL (32-36); Mean Corpuscular Volume 93.1 FL (87-102); Mean Platelet Volume 10.3 FL (9.6-12.0); Monocytes % 10.5 % (1.7-12.7); Neutrophils % 70.8 % (38.7-73.9); Red Blood Count 3.04 MC/CUMM (3.8-5.5); Red Cell Distribution Width 14.5 % (9.3-17.3); White Blood Count 9.1 T/CUMM (4-12)
[2019-07-26 09:25] LABS: Platelet Count 87 T/CUMM (130-400)
[2019-07-26] MEDS: hydrALAZINE 25 MG TABLET PO SCH (09:34)
[2019-07-26] MEDS: FUROSEMIDE 40 MG TABLET PO SCH (09:34)
[2019-07-26] MEDS: carvediloL 3.125 MG TABLET PO SCH (09:34)
[2019-07-26] MEDS: ISOSORBIDE MONONITRATE 30 MG TABLET PO SCH (09:34)
[2019-07-26] MEDS: POLYETHYLENE GLYCOL POWDER 17 GM PACK PO SCH (09:35)
[2019-07-26] MEDS: ASPIRIN EC 81 MG TABLET PO SCH (09:35)
[2019-07-26] MEDS: POTASSIUM CHLORIDE 10 MEQ TABLET PO SCH (09:35)
[2019-07-26] MEDS: SENNA 8.6 MG TABLET PO SCH (09:35)
[2019-07-26] MEDS: PANTOPRAZOLE 40 MG VIAL IV SCH (09:35)
[2019-07-26] MEDS: VITAMIN E 1000 UNIT CAPSULE PO SCH (09:36)
[2019-07-26 09:43] LABS: Calcium 8.7 MG/DL (8.5-10.1); Osmolality,Calculated 288.9 MOS/KG (273-304)
[2019-07-26 09:49] LABS: Hypochromasia 1+; Platelet Estimate Decreased
== END 2019-07-26 12:21 | DRG 260 ==
LOC: SUATTDRO 21:19 → N.3E 21:19 → N.ICU 22:25 → N.2E 07-22 14:07 → N.TELEN 07-25 17:33
PROVIDERS: ADMIT Internal Medicine; ATTEND Internal Medicine

== ENCOUNTER 2019-07-30 22:28 | Inpatient (IN) ==
[2019-07-30] MEDS ORDERED: ONDANSETRON 4 MG/2 ML VIAL IV STA (22:44)
[2019-07-30 23:14] LABS: Basophils % 0.2 % (0.0-0.8); Eosinophils # 0.1 10*3/uL (0.0-0.87); Eosinophils % 0.4 % (0.00-10.9); Hematocrit 30.1 VOL% (42.0-52.0); Hemoglobin 9.4 GM/DL (14.0-18.0); Immature Granulocytes % 0.8 %; Lymphocytes # 1.5 10*3/uL (1.4-4.0); Lymphocytes % 12.2 % (21.2-54.2); Mean Corpuscular HGB Conc 31.2 GM/DL (32-36); Mean Corpuscular Volume 91.2 FL (87-102); Monocytes % 9.2 % (1.7-12.7); Neutrophils % 77.2 % (38.7-73.9); Platelet Count 168 T/CUMM (130-400); Red Cell Distribution Width 15.9 % (9.3-17.3); White Blood Count 12.4 T/CUMM (4-12)
[2019-07-30 23:34] LABS: Albumin 3.2 G/DL (3.4-5.0); Bilirubin,Total 2.8 MG/DL (0.2-1.0); Osmolality,Calculated 289.9 MOS/KG (273-304); Total Protein 6.3 G/DL (6.4-8.3)
[2019-07-31] MEDS ORDERED: FUROSEMIDE 40 MG/4 ML VIAL IV STA (00:23)
[2019-07-31] MEDS ORDERED: AZITHROMYCIN INJ 500 MG in SODIUM CHLORIDE 0.9% 250 ML IV STA (00:24)
[2019-07-31] MEDS ORDERED: MAGNESIUM SULF RIDER 4 GM in PREMIX 1 EACH IV PRN (02:58)
[2019-07-31] MEDS ORDERED: MAGNESIUM SULF RIDER 2 GM in PREMIX 1 EACH IV PRN (02:58)
[2019-07-31] MEDS ORDERED: GLUCAGON 1 MG VIAL IM PRN (02:58)
[2019-07-31] MEDS ORDERED: FLUTICASONE 50 MCG NASAL SPRAY 16 GM BOTTLE BOTH NARES PRN (03:07)
[2019-07-31] MEDS ORDERED: DEXTROSE 10% 250 ML BAG IV PRN (03:40)
[2019-07-31] MEDS ORDERED: FUROSEMIDE 40 MG/4 ML VIAL IV SCH (08:00)
[2019-07-31] MEDS ORDERED: PANTOPRAZOLE 40 MG TABLET PO SCH (09:00)
[2019-07-31] MEDS: hydrALAZINE 25 MG TABLET PO SCH ×2 (09:20→20:44)
[2019-07-31] MEDS: PANTOPRAZOLE 40 MG TABLET PO SCH ×2 (09:20→20:44)
[2019-07-31] MEDS: ISOSORBIDE MONONITRATE 30 MG TABLET PO SCH (09:25)
[2019-07-31] MEDS: ASPIRIN EC 81 MG TABLET PO SCH (09:56)
[2019-07-31] MEDS: APIXABAN 2.5 MG TABLET PO SCH ×2 (09:56→20:44)
[2019-07-31] MEDS: BISACODYL 5 MG TABLET PO SCH (09:56)
[2019-07-31] MEDS: POLYETHYLENE GLYCOL POWDER 17 GM PACK PO SCH ×2 (09:57→20:44)
[2019-07-31] MEDS: CETIRIZINE 10 MG TABLET PO SCH (09:57)
[2019-07-31] MEDS: LINACLOTIDE 145 MCG CAPSULE PO SCH (09:57)
[2019-07-31] MEDS: POTASSIUM CHLORIDE 10 MEQ TABLET PO SCH (09:57)
[2019-07-31 11:00] LABS: Basophils % 0.2 % (0.0-0.8); Eosinophils # 0.1 10*3/uL (0.0-0.87); Hematocrit 30.1 VOL% (42.0-52.0); Hemoglobin 9.3 GM/DL (14.0-18.0); Immature Granulocytes % 0.7 %; Lymphocytes # 1.4 10*3/uL (1.4-4.0); Lymphocytes % 9.5 % (21.2-54.2); Mean Corpuscular HGB Conc 30.9 GM/DL (32-36); Mean Corpuscular Volume 92.3 FL (87-102); Mean Platelet Volume 10.5 FL (9.6-12.0); Monocytes % 12.4 % (1.7-12.7); Neutrophils % 76.2 % (38.7-73.9); Platelet Count 154 T/CUMM (130-400); Red Blood Count 3.26 MC/CUMM (3.8-5.5); Red Cell Distribution Width 15.9 % (9.3-17.3); White Blood Count 14.7 T/CUMM (4-12)
[2019-07-31 11:36] LABS: Bilirubin,Total 2.8 MG/DL (0.2-1.0); Osmolality,Calculated 285.1 MOS/KG (273-304)
[2019-07-31] MEDS: NYSTATIN 500,000 UNIT/5 ML UDCUP SWISH/SWAL SCH ×3 (13:06→20:44)
[2019-07-31] MEDS: FUROSEMIDE 100 MG/10 ML VIAL IV SCH (15:48)
[2019-07-31] MEDS: MONTELUKAST 10 MG TABLET PO SCH (20:44)
[2019-08-01] MEDS: ACETAMINOPHEN 325 MG TABLET PO PRN ×2 (01:00→22:50)
[2019-08-01] MEDS: ZALEPLON 5 MG CAPSULE PO PRN ×2 (01:00→22:50)
[2019-08-01 05:08] LABS: Basophils % 0.2 % (0.0-0.8); Eosinophils # 0.1 10*3/uL (0.0-0.87); Eosinophils % 0.9 % (0.00-10.9); Hematocrit 28.5 VOL% (42.0-52.0); Immature Granulocytes % 0.7 %; Immature Granulocytes Absolute 0.08 #; Lymphocytes # 1.4 10*3/uL (1.4-4.0); Mean Corpuscular HGB Conc 31.6 GM/DL (32-36); Mean Corpuscular Volume 88.8 FL (87-102); Mean Platelet Volume 10.4 FL (9.6-12.0); Monocytes % 9.8 % (1.7-12.7); Neutrophils % 75.4 % (38.7-73.9); Platelet Count 131 T/CUMM (130-400); Red Blood Count 3.21 MC/CUMM (3.8-5.5); Red Cell Distribution Width 15.9 % (9.3-17.3)
[2019-08-01 05:24] LABS: Calcium 8.7 MG/DL (8.5-10.1); Osmolality,Calculated 296.4 MOS/KG (273-304)
[2019-08-01] MEDS: LINACLOTIDE 145 MCG CAPSULE PO SCH (08:36)
[2019-08-01] MEDS: POLYETHYLENE GLYCOL POWDER 17 GM PACK PO SCH ×2 (08:37→22:15)
[2019-08-01] MEDS: ISOSORBIDE MONONITRATE 30 MG TABLET PO SCH (08:38)
[2019-08-01] MEDS: ASPIRIN EC 81 MG TABLET PO SCH (08:38)
[2019-08-01] MEDS: BISACODYL 5 MG TABLET PO SCH (08:38)
[2019-08-01] MEDS: PANTOPRAZOLE 40 MG TABLET PO SCH ×2 (08:38→22:15)
[2019-08-01] MEDS: NYSTATIN 500,000 UNIT/5 ML UDCUP SWISH/SWAL SCH ×4 (08:38→22:15)
[2019-08-01] MEDS: APIXABAN 2.5 MG TABLET PO SCH ×2 (08:38→22:15)
[2019-08-01] MEDS: hydrALAZINE 25 MG TABLET PO SCH ×2 (08:38→22:52)
[2019-08-01] MEDS: CETIRIZINE 10 MG TABLET PO SCH (08:38)
[2019-08-01] MEDS: POTASSIUM CHLORIDE 10 MEQ TABLET PO SCH (08:38)
[2019-08-01] MEDS: FUROSEMIDE 100 MG/10 ML VIAL IV SCH ×2 (08:39→15:54)
[2019-08-01] MEDS ORDERED: VANCOMYCIN INJ 1,000 MG in SODIUM CHLORIDE 0.9% 250 ML IV ONE (10:47)
[2019-08-01] MEDS ORDERED: VANCOMYCIN INJ 1,500 MG in SODIUM CHLORIDE 0.9% 500 ML IV ONE (12:00)
[2019-08-01] MEDS: MONTELUKAST 10 MG TABLET PO SCH (22:15)
[2019-08-02] MEDS: ACETAMINOPHEN 325 MG TABLET PO PRN ×2 (03:45→21:13)
[2019-08-02 07:17] LABS: Basophils # 0.1 10*3/uL (0.0-0.2); Basophils % 0.4 % (0.0-0.8); Eosinophils # 0.2 10*3/uL (0.0-0.87); Eosinophils % 1.7 % (0.00-10.9); Hematocrit 29.4 VOL% (42.0-52.0); Immature Granulocytes % 0.4 %; Immature Granulocytes Absolute 0.05 #; Lymphocytes # 1.1 10*3/uL (1.4-4.0); Mean Corpuscular HGB Conc 30.6 GM/DL (32-36); Mean Corpuscular Volume 92.5 FL (87-102); Mean Platelet Volume 10.4 FL (9.6-12.0); Monocytes % 10.4 % (1.7-12.7); Neutrophils % 77.1 % (38.7-73.9); Platelet Count 140 T/CUMM (130-400); Red Blood Count 3.18 MC/CUMM (3.8-5.5); Red Cell Distribution Width 16.1 % (9.3-17.3); White Blood Count 11.3 T/CUMM (4-12)
[2019-08-02] MEDS ORDERED: BISACODYL 10 MG SUPP RECTAL ONE (08:25)
[2019-08-02 08:45] LABS: Calcium 8.5 MG/DL (8.5-10.1); Osmolality,Calculated 298.1 MOS/KG (273-304)
[2019-08-02] MEDS: NYSTATIN 500,000 UNIT/5 ML UDCUP SWISH/SWAL SCH ×4 (08:48→21:12)
[2019-08-02] MEDS: POTASSIUM CHLORIDE 10 MEQ TABLET PO SCH (08:49)
[2019-08-02] MEDS: CETIRIZINE 10 MG TABLET PO SCH (08:49)
[2019-08-02] MEDS: hydrALAZINE 25 MG TABLET PO SCH ×2 (08:49→21:12)
[2019-08-02] MEDS: ASPIRIN EC 81 MG TABLET PO SCH (08:49)
[2019-08-02] MEDS: APIXABAN 2.5 MG TABLET PO SCH ×2 (08:49→21:13)
[2019-08-02] MEDS: BISACODYL 5 MG TABLET PO SCH (08:49)
[2019-08-02] MEDS: PANTOPRAZOLE 40 MG TABLET PO SCH ×2 (08:49→21:13)
[2019-08-02] MEDS: FUROSEMIDE 100 MG/10 ML VIAL IV SCH ×2 (08:50→16:14)
[2019-08-02] MEDS: LINACLOTIDE 145 MCG CAPSULE PO SCH (08:50)
[2019-08-02] MEDS: ISOSORBIDE MONONITRATE 30 MG TABLET PO SCH (08:51)
[2019-08-02] MEDS: POLYETHYLENE GLYCOL POWDER 17 GM PACK PO SCH ×2 (08:51→21:18)
[2019-08-02] MEDS ORDERED: MAGNESIUM CITRATE 300 ML BOTTLE PO ONE (15:28)
[2019-08-02] MEDS: MONTELUKAST 10 MG TABLET PO SCH (21:12)
[2019-08-02] MEDS: metOLazone 5 MG TABLET PO SCH (21:12)
[2019-08-02] MEDS: ZALEPLON 5 MG CAPSULE PO PRN (21:13)
[2019-08-02] MEDS: ALUMINUM/MAGNES/SIMETH MAX STR 30 ML UDCUP PO PRN (22:11)
[2019-08-03 07:49] LABS: Calcium 9.1 MG/DL (8.5-10.1); Osmolality,Calculated 296.2 MOS/KG (273-304)
[2019-08-03] MEDS ORDERED: MYLANTA/LIDO VISC 2:1 300 ML BOTTLE SWISH/SPIT PRN (08:10)
[2019-08-03] MEDS ORDERED: FLUCONAZOLE 200 MG TABLET PO ONE (08:10)
[2019-08-03] MEDS: NYSTATIN 500,000 UNIT/5 ML UDCUP SWISH/SWAL SCH (08:37)
[2019-08-03] MEDS: PANTOPRAZOLE 40 MG TABLET PO SCH ×2 (08:37→21:14)
[2019-08-03] MEDS: POLYETHYLENE GLYCOL POWDER 17 GM PACK PO SCH ×2 (08:37→21:15)
[2019-08-03] MEDS: BISACODYL 5 MG TABLET PO SCH (08:37)
[2019-08-03] MEDS: metOLazone 5 MG TABLET PO SCH ×2 (08:37→21:15)
[2019-08-03] MEDS: ISOSORBIDE MONONITRATE 30 MG TABLET PO SCH (08:38)
[2019-08-03] MEDS: CETIRIZINE 10 MG TABLET PO SCH (08:38)
[2019-08-03] MEDS: APIXABAN 2.5 MG TABLET PO SCH (08:38)
[2019-08-03] MEDS: POTASSIUM CHLORIDE 10 MEQ TABLET PO SCH (08:38)
[2019-08-03] MEDS: hydrALAZINE 25 MG TABLET PO SCH ×2 (08:38→21:20)
[2019-08-03] MEDS: LINACLOTIDE 145 MCG CAPSULE PO SCH (08:38)
[2019-08-03] MEDS: ASPIRIN EC 81 MG TABLET PO SCH (08:39)
[2019-08-03] MEDS: FUROSEMIDE 100 MG/10 ML VIAL IV SCH ×2 (08:39→15:34)
[2019-08-03 11:54] LABS: Hepatitis B Core IgM Quant 0.06 Index; Hepatitis B Surface Ag Quant 0.24 Index; Hepatitis B Surface Ag Result Negative (Negative); Hepatitis C Virus Ab Quant 0.11 Index; Hepatitis C Virus Ab Result Negative (Negative)
[2019-08-03] MEDS: THIAMINE 100 MG TABLET PO SCH (21:14)
[2019-08-03] MEDS: MONTELUKAST 10 MG TABLET PO SCH (21:15)
[2019-08-03] MEDS: ZALEPLON 5 MG CAPSULE PO PRN (21:17)
[2019-08-03] MEDS: ALUMINUM/MAGNES/SIMETH MAX STR 30 ML UDCUP PO PRN (21:56)
[2019-08-04] MEDS ORDERED: HEPARIN 5,000 UNIT/1 ML VIAL ONE (06:46)
[2019-08-04] MEDS ORDERED: BUPIVACAINE MPF 0.25% 30 ML VIAL ONE (06:46)
[2019-08-04] MEDS ORDERED: LIDOCAINE 1%/EPI INJ 20 ML VIAL ONE (06:46)
[2019-08-04] MEDS ORDERED: ceFAZolin 1,000 MG in SYRINGE 1 EACH IV ONE (07:00)
[2019-08-04] MEDS ORDERED: DEXMEDETOMIDINE 200 MCG/2 ML VIAL ONE (07:24)
[2019-08-04] MEDS ORDERED: SODIUM CHLORIDE 0.9% 250 ML IV SCH (08:00)
[2019-08-04] MEDS ORDERED: propofoL 200 MG/20 ML VIAL IV ONE (08:19)
[2019-08-04] MEDS: metOLazone 5 MG TABLET PO SCH ×2 (09:13→21:39)
[2019-08-04] MEDS: THIAMINE 100 MG TABLET PO SCH ×2 (09:13→21:39)
[2019-08-04] MEDS: ISOSORBIDE MONONITRATE 30 MG TABLET PO SCH (09:13)
[2019-08-04] MEDS: LINACLOTIDE 145 MCG CAPSULE PO SCH (09:14)
[2019-08-04] MEDS: FUROSEMIDE 100 MG/10 ML VIAL IV SCH ×2 (09:14→16:46)
[2019-08-04] MEDS: BISACODYL 5 MG TABLET PO SCH (09:14)
[2019-08-04] MEDS: POTASSIUM CHLORIDE 10 MEQ TABLET PO SCH (09:14)
[2019-08-04] MEDS: CETIRIZINE 10 MG TABLET PO SCH (09:14)
[2019-08-04] MEDS: ASPIRIN EC 81 MG TABLET PO SCH (09:14)
[2019-08-04] MEDS: MULTIVITAMIN (CENTRUM) TABLET PO SCH (09:14)
[2019-08-04] MEDS: POLYETHYLENE GLYCOL POWDER 17 GM PACK PO SCH ×2 (09:14→21:39)
[2019-08-04] MEDS: PANTOPRAZOLE 40 MG TABLET PO SCH ×2 (09:14→21:39)
[2019-08-04] MEDS: hydrALAZINE 25 MG TABLET PO SCH ×2 (09:16→21:38)
[2019-08-04] MEDS ORDERED: HEPARIN 10,000 UNIT/10 ML VIAL IV PRN (14:06)
[2019-08-04] MEDS: ZALEPLON 5 MG CAPSULE PO PRN (21:39)
[2019-08-04] MEDS: MONTELUKAST 10 MG TABLET PO SCH (21:39)
[2019-08-05] MEDS: ONDANSETRON 4 MG/2 ML VIAL IV PRN ×3 (04:12→16:13)
[2019-08-05 06:52] LABS: Basophils % 0.4 % (0.0-0.8); Eosinophils # 0.1 10*3/uL (0.0-0.87); Eosinophils % 0.5 % (0.00-10.9); Hematocrit 28.5 VOL% (42.0-52.0); Hemoglobin 8.7 GM/DL (14.0-18.0); Immature Granulocytes % 0.3 %; Immature Granulocytes Absolute 0.03 #; Lymphocytes # 1.3 10*3/uL (1.4-4.0); Lymphocytes % 13.4 % (21.2-54.2); Mean Corpuscular HGB Conc 30.5 GM/DL (32-36); Mean Corpuscular Volume 91.3 FL (87-102); Mean Platelet Volume 10.6 FL (9.6-12.0); Monocytes % 10.9 % (1.7-12.7); NRBC # 0.03 10*3/uL; Neutrophils % 74.5 % (38.7-73.9); Platelet Count 115 T/CUMM (130-400); Red Blood Count 3.12 MC/CUMM (3.8-5.5); Red Cell Distribution Width 16.3 % (9.3-17.3); White Blood Count 9.3 T/CUMM (4-12)
[2019-08-05 07:16] LABS: Calcium 8.7 MG/DL (8.5-10.1); Osmolality,Calculated 286.1 MOS/KG (273-304)
[2019-08-05] MEDS: FUROSEMIDE 100 MG/10 ML VIAL IV SCH ×2 (08:54→16:15)
[2019-08-05] MEDS: POTASSIUM CHLORIDE 10 MEQ TABLET PO SCH (08:55)
[2019-08-05] MEDS: ISOSORBIDE MONONITRATE 30 MG TABLET PO SCH (08:55)
[2019-08-05] MEDS: BISACODYL 5 MG TABLET PO SCH (08:56)
[2019-08-05] MEDS: THIAMINE 100 MG TABLET PO SCH ×3 (08:56→22:34)
[2019-08-05] MEDS: POLYETHYLENE GLYCOL POWDER 17 GM PACK PO SCH ×3 (08:56→20:53)
[2019-08-05] MEDS: CETIRIZINE 10 MG TABLET PO SCH (08:56)
[2019-08-05] MEDS: ASPIRIN EC 81 MG TABLET PO SCH (08:56)
[2019-08-05] MEDS: hydrALAZINE 25 MG TABLET PO SCH ×4 (08:56→22:34)
[2019-08-05] MEDS: LINACLOTIDE 145 MCG CAPSULE PO SCH (08:57)
[2019-08-05] MEDS: PANTOPRAZOLE 40 MG TABLET PO SCH ×3 (08:57→22:34)
[2019-08-05] MEDS: metOLazone 5 MG TABLET PO SCH ×3 (08:57→22:34)
[2019-08-05] MEDS: MULTIVITAMIN (CENTRUM) TABLET PO SCH (09:34)
[2019-08-05] MEDS: LIDOCAINE 2% VISCOUS 100 ML BOTTLE SWISH/SPIT PRN (20:49)
[2019-08-05] MEDS: MONTELUKAST 10 MG TABLET PO SCH ×2 (20:52→22:34)
[2019-08-05] MEDS: ALUMINUM/MAGNES/SIMETH MAX STR 30 ML UDCUP PO PRN (20:52)
[2019-08-05] MEDS: ZALEPLON 5 MG CAPSULE PO PRN (22:33)
[2019-08-06] MEDS: LIDOCAINE 2% VISCOUS 100 ML BOTTLE SWISH/SPIT PRN ×2 (04:59→09:42)
[2019-08-06] MEDS: THIAMINE 100 MG TABLET PO SCH ×2 (09:42→21:18)
[2019-08-06] MEDS: ALUMINUM/MAGNES/SIMETH MAX STR 30 ML UDCUP PO PRN ×2 (09:42→21:16)
[2019-08-06] MEDS: PANTOPRAZOLE 40 MG TABLET PO SCH ×2 (09:43→21:32)
[2019-08-06] MEDS: ISOSORBIDE MONONITRATE 30 MG TABLET PO SCH (09:43)
[2019-08-06] MEDS: FUROSEMIDE 100 MG/10 ML VIAL IV SCH ×2 (09:43→17:11)
[2019-08-06] MEDS: LINACLOTIDE 145 MCG CAPSULE PO SCH (09:43)
[2019-08-06] MEDS: BISACODYL 5 MG TABLET PO SCH (09:43)
[2019-08-06] MEDS: MULTIVITAMIN (CENTRUM) TABLET PO SCH (09:43)
[2019-08-06] MEDS: hydrALAZINE 25 MG TABLET PO SCH ×2 (09:43→21:31)
[2019-08-06] MEDS: POTASSIUM CHLORIDE 10 MEQ TABLET PO SCH (09:43)
[2019-08-06] MEDS: CETIRIZINE 10 MG TABLET PO SCH (09:43)
[2019-08-06] MEDS: POLYETHYLENE GLYCOL POWDER 17 GM PACK PO SCH ×2 (09:44→21:32)
[2019-08-06] MEDS: ASPIRIN EC 81 MG TABLET PO SCH (09:58)
[2019-08-06] MEDS: metOLazone 5 MG TABLET PO SCH ×2 (09:58→21:32)
[2019-08-06] MEDS: MONTELUKAST 10 MG TABLET PO SCH (21:32)
[2019-08-07] MEDS: LINACLOTIDE 145 MCG CAPSULE PO SCH (10:19)
[2019-08-07] MEDS: metOLazone 5 MG TABLET PO SCH ×2 (10:19→22:20)
[2019-08-07] MEDS: THIAMINE 100 MG TABLET PO SCH ×2 (10:20→22:20)
[2019-08-07] MEDS: PANTOPRAZOLE 40 MG TABLET PO SCH ×2 (10:20→22:20)
[2019-08-07] MEDS: POTASSIUM CHLORIDE 10 MEQ TABLET PO SCH (10:20)
[2019-08-07] MEDS: ASPIRIN EC 81 MG TABLET PO SCH (10:20)
[2019-08-07] MEDS: CETIRIZINE 10 MG TABLET PO SCH (10:20)
[2019-08-07] MEDS: BISACODYL 5 MG TABLET PO SCH (10:20)
[2019-08-07] MEDS: ISOSORBIDE MONONITRATE 30 MG TABLET PO SCH (10:20)
[2019-08-07] MEDS: MULTIVITAMIN (CENTRUM) TABLET PO SCH (10:20)
[2019-08-07] MEDS: FUROSEMIDE 100 MG/10 ML VIAL IV SCH ×2 (10:21→16:21)
[2019-08-07] MEDS: POLYETHYLENE GLYCOL POWDER 17 GM PACK PO SCH ×2 (10:21→22:17)
[2019-08-07] MEDS: hydrALAZINE 25 MG TABLET PO SCH ×2 (12:23→22:20)
[2019-08-07] MEDS: ALUMINUM/MAGNES/SIMETH MAX STR 30 ML UDCUP PO PRN (18:07)
[2019-08-07] MEDS: LIDOCAINE 2% VISCOUS 100 ML BOTTLE SWISH/SPIT PRN (22:19)
[2019-08-07] MEDS: MONTELUKAST 10 MG TABLET PO SCH (22:20)
[2019-08-08] MEDS ORDERED: ZALEPLON 5 MG CAPSULE PO PRN (01:08)
[2019-08-08] MEDS: NYSTATIN 500,000 UNIT/5 ML UDCUP SWISH/SWAL SCH ×5 (01:15→21:41)
[2019-08-08] MEDS: ONDANSETRON 4 MG/2 ML VIAL IV PRN (03:02)
[2019-08-08 06:13] LABS: Basophils % 0.3 % (0.0-0.8); Eosinophils # 0.1 10*3/uL (0.0-0.87); Hematocrit 29.1 VOL% (42.0-52.0); Hemoglobin 8.9 GM/DL (14.0-18.0); Immature Granulocytes % 0.5 %; Immature Granulocytes Absolute 0.05 #; Lymphocytes # 1.3 10*3/uL (1.4-4.0); Lymphocytes % 12.3 % (21.2-54.2); Mean Corpuscular HGB Conc 30.6 GM/DL (32-36); Mean Corpuscular Volume 91.5 FL (87-102); Monocytes % 9.8 % (1.7-12.7); Neutrophils % 76.1 % (38.7-73.9); Platelet Count 81 T/CUMM (130-400); Red Blood Count 3.18 MC/CUMM (3.8-5.5); Red Cell Distribution Width 16.8 % (9.3-17.3); White Blood Count 10.5 T/CUMM (4-12)
[2019-08-08 06:23] LABS: Calcium 8.8 MG/DL (8.5-10.1); Osmolality,Calculated 274.1 MOS/KG (273-304)
[2019-08-08 06:38] LABS: Hypochromasia 1+; Ovalocytes Slight; Platelet Estimate Decreased
[2019-08-08] MEDS: ISOSORBIDE MONONITRATE 30 MG TABLET PO SCH (09:28)
[2019-08-08] MEDS: MULTIVITAMIN (CENTRUM) TABLET PO SCH (09:29)
[2019-08-08] MEDS: CETIRIZINE 10 MG TABLET PO SCH (09:29)
[2019-08-08] MEDS: metOLazone 5 MG TABLET PO SCH ×2 (09:29→21:41)
[2019-08-08] MEDS: THIAMINE 100 MG TABLET PO SCH ×2 (09:29→21:41)
[2019-08-08] MEDS: PANTOPRAZOLE 40 MG TABLET PO SCH ×2 (09:29→21:41)
[2019-08-08] MEDS: hydrALAZINE 25 MG TABLET PO SCH ×2 (09:29→21:42)
[2019-08-08] MEDS: ASPIRIN EC 81 MG TABLET PO SCH (09:29)
[2019-08-08] MEDS: POTASSIUM CHLORIDE 10 MEQ TABLET PO SCH (09:29)
[2019-08-08] MEDS: POLYETHYLENE GLYCOL POWDER 17 GM PACK PO SCH ×2 (09:31→21:42)
[2019-08-08] MEDS: BISACODYL 5 MG TABLET PO SCH (09:31)
[2019-08-08] MEDS: FUROSEMIDE 100 MG/10 ML VIAL IV SCH ×2 (09:39→18:17)
[2019-08-08] MEDS: LINACLOTIDE 145 MCG CAPSULE PO SCH (09:48)
[2019-08-08] MEDS ORDERED: TUBERCULIN SKIN TEST 0.1 ML SYRINGE INTRADERM ONE (17:51)
[2019-08-08] MEDS: MONTELUKAST 10 MG TABLET PO SCH (21:41)
[2019-08-09] MEDS: FUROSEMIDE 100 MG/10 ML VIAL IV SCH (08:31)
[2019-08-09] MEDS: hydrALAZINE 25 MG TABLET PO SCH (08:38)
[2019-08-09] MEDS: PANTOPRAZOLE 40 MG TABLET PO SCH (08:39)
[2019-08-09] MEDS: POTASSIUM CHLORIDE 10 MEQ TABLET PO SCH (08:39)
[2019-08-09] MEDS: LINACLOTIDE 145 MCG CAPSULE PO SCH (08:39)
[2019-08-09] MEDS: ISOSORBIDE MONONITRATE 30 MG TABLET PO SCH (08:39)
[2019-08-09] MEDS: NYSTATIN 500,000 UNIT/5 ML UDCUP SWISH/SWAL SCH ×2 (08:39→14:08)
[2019-08-09] MEDS: THIAMINE 100 MG TABLET PO SCH (08:39)
[2019-08-09] MEDS: BISACODYL 5 MG TABLET PO SCH (08:39)
[2019-08-09] MEDS: POLYETHYLENE GLYCOL POWDER 17 GM PACK PO SCH (08:39)
[2019-08-09] MEDS: MULTIVITAMIN (CENTRUM) TABLET PO SCH (08:39)
[2019-08-09] MEDS: ASPIRIN EC 81 MG TABLET PO SCH (08:39)
[2019-08-09] MEDS: metOLazone 5 MG TABLET PO SCH (08:40)
[2019-08-09] MEDS: CETIRIZINE 10 MG TABLET PO SCH (08:40)
[2019-08-09 16:45] VITALS: BP 106/62
== END 2019-08-09 16:58 | disposition home health service (06) | DRG 291 ==
LOC: EDUNIT# → EDSEX → EDBD → N.ED 22:28 → N.EDINP 07-31 02:58 → SUATTDRO 07-31 02:58 → N.2E 07-31 03:48 → N.TELEN 08-02 15:27
PROVIDERS: ADMIT Internal Medicine; ATTEND Internal Medicine

== ENCOUNTER 2019-08-11 23:50 | Inpatient (IN) ==
[2019-08-12] MEDS ORDERED: ONDANSETRON 4 MG/2 ML VIAL IV PRN (00:06)
[2019-08-12] MEDS ORDERED: DOBUTamine 500 MG/250 ML PREMIX IV PRN (00:10)
[2019-08-12] MEDS ORDERED: FLUTICASONE 50 MCG NASAL SPRAY 16 GM BOTTLE BOTH NARES PRN (00:10)
[2019-08-12] MEDS ORDERED: ALBUTEROL 2.5 MG/3 ML NEB RESP TX PRN (02:38)
[2019-08-12 03:32] LABS: Basophils % 0.1 % (0.0-0.8); Hematocrit 32.1 VOL% (42.0-52.0); Hemoglobin 9.4 GM/DL (14.0-18.0); Immature Granulocytes % 0.6 %; Immature Granulocytes Absolute 0.06 #; Lymphocytes # 0.5 10*3/uL (1.4-4.0); Lymphocytes % 5.5 % (21.2-54.2); Mean Corpuscular HGB Conc 29.3 GM/DL (32-36); Mean Corpuscular Volume 95.8 FL (87-102); Mean Platelet Volume 11.2 FL (9.6-12.0); Monocytes % 7.8 % (1.7-12.7); NRBC # 0.04 10*3/uL; Red Blood Count 3.35 MC/CUMM (3.8-5.5); Red Cell Distribution Width 18.7 % (9.3-17.3); White Blood Count 9.3 T/CUMM (4-12)
[2019-08-12 03:39] LABS: Platelet Count 78 T/CUMM (130-400)
[2019-08-12 03:45] LABS: Albumin 2.2 G/DL (3.4-5.0); Bilirubin,Total 3.2 MG/DL (0.2-1.0); Calcium 8.2 MG/DL (8.5-10.1); Osmolality,Calculated 268.8 MOS/KG (273-304); Total Protein 5.4 G/DL (6.4-8.3)
[2019-08-12 04:05] LABS: Acanthocytes Few; Burr Cells 3+; Hypochromasia Slight; Platelet Estimate Decreased; Polychromasia Few
[2019-08-12] MEDS ORDERED: DEXTROSE 50% 25 GM/50 ML VIAL IV PRN (04:31)
[2019-08-12] MEDS: APIXABAN 2.5 MG TABLET PO SCH ×2 (08:41→21:55)
[2019-08-12] MEDS: THIAMINE 100 MG TABLET PO SCH ×2 (08:41→21:55)
[2019-08-12] MEDS: CETIRIZINE 10 MG TABLET PO SCH (08:41)
[2019-08-12] MEDS: PANTOPRAZOLE 40 MG TABLET PO SCH ×2 (08:41→21:55)
[2019-08-12] MEDS: BISACODYL 5 MG TABLET PO SCH (08:41)
[2019-08-12] MEDS: NYSTATIN 500,000 UNIT/5 ML UDCUP SWISH/SWAL SCH ×4 (08:41→21:55)
[2019-08-12] MEDS: ASPIRIN EC 81 MG TABLET PO SCH (08:41)
[2019-08-12] MEDS: MULTIVITAMIN (CENTRUM) TABLET PO SCH (08:41)
[2019-08-12] MEDS: SENNA 8.6 MG TABLET PO SCH ×2 (08:41→21:55)
[2019-08-12] MEDS: POLYETHYLENE GLYCOL POWDER 17 GM PACK PO SCH ×2 (08:41→21:55)
[2019-08-12] MEDS ORDERED: PANTOPRAZOLE 40 MG TABLET PO SCH (09:00)
[2019-08-12] MEDS: HYDROCORTISONE 100 MG VIAL IV SCH ×2 (10:40→18:29)
[2019-08-12] MEDS: MONTELUKAST 10 MG TABLET PO SCH (21:55)
[2019-08-13] MEDS: HYDROCORTISONE 100 MG VIAL IV SCH ×3 (02:28→18:14)
[2019-08-13] MEDS ORDERED: BENZOCAINE 20% ORAL GEL 11.9 GM TUBE TOP PRN (05:02)
[2019-08-13 05:41] LABS: Basophils % 0.1 % (0.0-0.8); Hematocrit 27.9 VOL% (42.0-52.0); Hemoglobin 8.4 GM/DL (14.0-18.0); Immature Granulocytes % 0.5 %; Immature Granulocytes Absolute 0.05 #; Lymphocytes # 0.6 10*3/uL (1.4-4.0); Mean Corpuscular HGB Conc 30.1 GM/DL (32-36); Mean Corpuscular Volume 92.1 FL (87-102); Mean Platelet Volume 11.4 FL (9.6-12.0); Monocytes % 7.5 % (1.7-12.7); Neutrophils % 85.9 % (38.7-73.9); Red Blood Count 3.03 MC/CUMM (3.8-5.5); Red Cell Distribution Width 18.6 % (9.3-17.3); White Blood Count 10.2 T/CUMM (4-12)
[2019-08-13 06:01] LABS: Albumin 2.4 G/DL (3.4-5.0); Bilirubin,Total 2.8 MG/DL (0.2-1.0); Calcium 7.9 MG/DL (8.5-10.1); Osmolality,Calculated 281.7 MOS/KG (273-304); Total Protein 4.8 G/DL (6.4-8.3)
[2019-08-13 06:02] LABS: Platelet Count 65 T/CUMM (130-400)
[2019-08-13] MEDS: BISACODYL 5 MG TABLET PO SCH (08:45)
[2019-08-13] MEDS: POLYETHYLENE GLYCOL POWDER 17 GM PACK PO SCH ×3 (08:45→20:31)
[2019-08-13] MEDS: SENNA 8.6 MG TABLET PO SCH ×3 (08:45→20:31)
[2019-08-13] MEDS: NYSTATIN 500,000 UNIT/5 ML UDCUP SWISH/SWAL SCH ×4 (09:09→20:29)
[2019-08-13] MEDS: ASPIRIN EC 81 MG TABLET PO SCH (09:09)
[2019-08-13] MEDS: PANTOPRAZOLE 40 MG TABLET PO SCH ×2 (09:09→20:29)
[2019-08-13] MEDS: THIAMINE 100 MG TABLET PO SCH ×2 (09:09→20:29)
[2019-08-13] MEDS: CETIRIZINE 10 MG TABLET PO SCH (09:09)
[2019-08-13] MEDS: MULTIVITAMIN (CENTRUM) TABLET PO SCH (09:09)
[2019-08-13] MEDS: APIXABAN 2.5 MG TABLET PO SCH ×2 (09:09→20:29)
[2019-08-13] MEDS ORDERED: TROLAMINE SALICYLATE 10% CREAM 85 GM TUBE TOP PRN (14:13)
[2019-08-13] MEDS: MONTELUKAST 10 MG TABLET PO SCH (20:29)
[2019-08-14] MEDS: HYDROCORTISONE 100 MG VIAL IV SCH ×3 (02:50→17:06)
[2019-08-14 03:46] LABS: Basophils % 0.1 % (0.0-0.8); Hematocrit 29.1 VOL% (42.0-52.0); Hemoglobin 8.7 GM/DL (14.0-18.0); Immature Granulocytes % 0.5 %; Immature Granulocytes Absolute 0.05 #; Lymphocytes # 0.7 10*3/uL (1.4-4.0); Lymphocytes % 7.6 % (21.2-54.2); Mean Corpuscular HGB Conc 29.9 GM/DL (32-36); Mean Corpuscular Volume 91.5 FL (87-102); Mean Platelet Volume 11.3 FL (9.6-12.0); Monocytes % 7.7 % (1.7-12.7); NRBC # 0.03 10*3/uL; Neutrophils % 84.1 % (38.7-73.9); Red Blood Count 3.18 MC/CUMM (3.8-5.5); Red Cell Distribution Width 18.5 % (9.3-17.3); White Blood Count 9.3 T/CUMM (4-12)
[2019-08-14 04:06] LABS: Platelet Count 74 T/CUMM (130-400)
[2019-08-14 04:15] LABS: Calcium 8.3 MG/DL (8.5-10.1); Osmolality,Calculated 278.2 MOS/KG (273-304)
[2019-08-14 04:54] LABS: Hypochromasia 1+; Ovalocytes Slight; Platelet Estimate Decreased
[2019-08-14] MEDS ORDERED: ALBUMIN 25% 25 GM in PREMIX 1 EACH IV ONE ×2 (08:15→11:00)
[2019-08-14] MEDS: SENNA 8.6 MG TABLET PO SCH ×2 (08:59→20:30)
[2019-08-14] MEDS: THIAMINE 100 MG TABLET PO SCH ×2 (08:59→20:29)
[2019-08-14] MEDS: MULTIVITAMIN (CENTRUM) TABLET PO SCH (08:59)
[2019-08-14] MEDS: PANTOPRAZOLE 40 MG TABLET PO SCH ×2 (08:59→20:30)
[2019-08-14] MEDS: ASPIRIN EC 81 MG TABLET PO SCH (09:00)
[2019-08-14] MEDS: BISACODYL 5 MG TABLET PO SCH (09:00)
[2019-08-14] MEDS: CETIRIZINE 10 MG TABLET PO SCH (09:00)
[2019-08-14] MEDS: APIXABAN 2.5 MG TABLET PO SCH ×2 (09:00→20:29)
[2019-08-14] MEDS: NYSTATIN 500,000 UNIT/5 ML UDCUP SWISH/SWAL SCH ×4 (09:01→20:29)
[2019-08-14] MEDS: POLYETHYLENE GLYCOL POWDER 17 GM PACK PO SCH ×2 (09:01→21:27)
[2019-08-14] MEDS ORDERED: HEPARIN 10,000 UNIT/10 ML VIAL IV SCH (11:15)
[2019-08-14] MEDS: MONTELUKAST 10 MG TABLET PO SCH (20:29)
[2019-08-15] MEDS: HYDROCORTISONE 100 MG VIAL IV SCH ×2 (01:12→09:03)
[2019-08-15 08:17] LABS: Calcium 8.1 MG/DL (8.5-10.1); Osmolality,Calculated 281.9 MOS/KG (273-304)
[2019-08-15] MEDS: APIXABAN 2.5 MG TABLET PO SCH (09:21)
[2019-08-15] MEDS: MULTIVITAMIN (CENTRUM) TABLET PO SCH (09:21)
[2019-08-15] MEDS: PANTOPRAZOLE 40 MG TABLET PO SCH (09:21)
[2019-08-15] MEDS: CETIRIZINE 10 MG TABLET PO SCH (09:21)
[2019-08-15] MEDS: ASPIRIN EC 81 MG TABLET PO SCH (09:21)
[2019-08-15] MEDS: BISACODYL 5 MG TABLET PO SCH (09:21)
[2019-08-15] MEDS: SENNA 8.6 MG TABLET PO SCH (09:21)
[2019-08-15] MEDS: POLYETHYLENE GLYCOL POWDER 17 GM PACK PO SCH ×2 (09:21→10:08)
[2019-08-15] MEDS: NYSTATIN 500,000 UNIT/5 ML UDCUP SWISH/SWAL SCH ×2 (09:21→14:16)
[2019-08-15] MEDS: THIAMINE 100 MG TABLET PO SCH (09:23)
[2019-08-15] MEDS ORDERED: MENTHOL/ZINC OXIDE OINT 71 GM JAR TOP SCH (12:00)
[2019-08-15 12:04] VITALS: BP 96/57
== END 2019-08-15 17:15 | disposition hospice, home (50) | DRG 291 ==
LOC: SUATTDRO 08-12 01:39 → N.ICU 08-12 01:39 → N.TELEN 08-14 17:45
PROVIDERS: ADMIT Family Medicine; ATTEND Internal Medicine